=== PATIENT | male | born 1950 | race Caucasian/White ===

== ENCOUNTER 2024-12-15 08:01 | Outpatient (CLI) | payer OTHER, SELFPAY ==
--- NOTE | 2024-12-15 08:10 | IR_ITS ---
WS: [id number] SHOULDER ARTHROGRAM LEFT Fluoroscopic guided left shoulder arthrogram CLINICAL INFORMATION: PAIN IN LEFT SHOULDER COMPARISON: None. PROCEDURE: The procedure including risks, benefits and complications were discussed with the patient, who agreed to proceed. Using sterile technique, the patient was prepped and draped in the usual sterile fashion. After 1% lidocaine injection using fluoroscopic guidance, a 22-gauge spinal needle was advanced into the glenohumeral joint. Approximately 13 ml of a solution containing 15 ml normal saline, 5 ml Omnipaque 240, and 0.1 ml gadolinium was administered. No immediate complications. FLUOROSCOPY TIME: 1min [id number] # of spot films: 2 IR/IR arthrogram shoulderLT [id number] IMPRESSION: Uncomplicated fluoroscopic-guided left shoulder arthrogram. MRI to follow.
--- NOTE | 2024-12-15 08:14 | MR_ITS ---
WS: [id number] MRI shoulder arthrogram LEFT ORDER DATE: 12/15/2024 8:14 AM COMPARISON: LEFT HISTORY: NONTRAUMATIC COMPLETE TEAR OF LEFT ROTATOR CUFF TECHNIQUE: Axial T2 STAR, coronal proton density fat sat, sagittal T2 fat sat, sagittal proton density fat sat, axial proton density fat sat, coronal T2 fat sat, and coronal T1 performed. After intra-articular contrast, axial T1 fat sat, coronal T1 fat sat, and sagittal T1 fat sat were performed. FINDINGS: Susceptibility artifact from prior rotator cuff repair. Advanced degenerative arthritis AC joint. Subacromial spurring with narrowing of the subacromial space. Chronic thinning of the rotator cuff. Biceps tendon absent from the bicipital groove. High-grade full-thickness or near full-thickness tear involving the supraspinatus repair deep to the acromial spurring. Tear widening measures approximately 5.6 mm AP on the sagittal imaging. Chronic thinning of the infraspinatus which appears intact. Teres minor appears intact. Subscapularis tendon appears intact. Degenerative fraying and fissuring of the glenoid labrum with moderate to advanced degenerative narrowing at the glenohumeral articulation. Middle glenohumeral ligament appears intact. Inferior glenohumeral ligament appears intact. Long head of the biceps tendon is not visualized. MR/MR shoulder LT wo/w con [id number] IMPRESSION: Susceptibly artifact from prior rotator cuff repair degrades some i mages. 1. Moderate to advanced arthritis AC joint with fluid and edema. Narrowing of the subacromial space. 2. High-grade tear of the supraspinatus deep to the subacromial spurring with widening measuring 5.6 mm. 3. Rotator cuff otherwise appears intact. 4. Biceps tendon absent from the bicipital groove. Intra-articular biceps tend on not visualized. 5. Advanced degenerative glenohumeral reticulation with degenerative fraying a nd fissuring of the glenoid labrum.
[2024-12-15] MEDS: gadobenate dimeglumine 20 mL vial IV (11:32)
[2024-12-15] MEDS: iohexol 240 mg/mL 50 mL Btl 20 ML INTRA-ARTI (11:33)
== END 2024-12-15 08:02 | disposition home or self-care (01) ==
LOC: RAD 08:03
PROVIDERS: Visit Provider Orthopaedic Surgery
DX: M75.122 Complete rotator cuff tear or rupture of left shoulder, not specified as traumatic (principal); M19.012 Primary osteoarthritis, left shoulder; M75.42 Impingement syndrome of left shoulder; S43.432A Superior glenoid labrum lesion of left shoulder, initial encounter; X58.XXXA Exposure to other specified factors, initial encounter
CPT/HCPCS: 23350; 73223; 77002; J9999